=== PATIENT | female | born 1975 | race Caucasian/White ===

== ENCOUNTER 2021-06-04 13:55 | Emergency (ER) | payer MEDICAID ==
[~2021-06-04] VITALS: Ht 154.9 cm; Wt 41.0 kg
[2021-06-04] MEDS ORDERED: BACITRACIN ZINC OINT UDPKT TOP ONE (15:15)
[2021-06-04] MEDS ORDERED: LIDOCAINE HCL/EPINEPHRINE 1%-EPI 1:100,000 20 ML VIAL INFIL ONE (15:15)
[2021-06-04] MEDS ORDERED: LIDOCAINE HCL/EPINEPHRINE 1%-EPI 1:100,000 10 ML VIAL INFIL NR (15:45)
[2021-06-04 16:57] VITALS: BP 127/87
== END 2021-06-04 16:58 | disposition home or self-care (01) ==
LOC: ER 13:55
DX: S01.01XA Laceration without foreign body of scalp, initial encounter (principal); W01.0XXA Fall on same level from slipping, tripping and stumbling without subsequent striking against object, initial encounter; G80.9 Cerebral palsy, unspecified; Y93.89 Activity, other specified; Y92.098 Other place in other non-institutional residence as the place of occurrence of the external cause
CPT/HCPCS: 12013; 99282; A4217; J3490; Z7610

== ENCOUNTER 2021-06-11 13:39 | Emergency (ER) | payer MEDICARE, MEDICAID ==
[~2021-06-11] VITALS: Ht 147.3 cm; Wt 44.0 kg
[2021-06-11 14:39] VITALS: BP 127/75
== END 2021-06-11 14:40 | disposition home or self-care (01) ==
LOC: ER 13:39
DX: Z48.02 Encounter for removal of sutures (principal)
CPT/HCPCS: 99281; 99282

== ENCOUNTER 2022-02-01 18:27 | Emergency (ER) | payer MEDICARE, MEDICAID ==
[~2022-02-01] VITALS: Ht 152.4 cm; Wt 55.0 kg
[2022-02-01] MEDS ORDERED: CLOT15CR27 TP (18:44)
[2022-02-01] MEDS ORDERED: CHLO25TA22 PO (18:44)
[2022-02-01] MEDS ORDERED: FERR325T30 PO (18:44)
[2022-02-01] MEDS ORDERED: DOCU-150 PO (18:44)
[2022-02-01] MEDS ORDERED: CLOT30SO2 TP (18:44)
[2022-02-01] MEDS ORDERED: BACITRACIN ZINC OINT UDPKT TOP ONE (22:15)
[2022-02-01 22:30] VITALS: BP 115/75
== END 2022-02-01 22:37 | disposition home or self-care (01) ==
LOC: ER 18:27
DX: S01.81XA Laceration without foreign body of other part of head, initial encounter (principal); G80.9 Cerebral palsy, unspecified; F79 Unspecified intellectual disabilities; W01.10XA Fall on same level from slipping, tripping and stumbling with subsequent striking against unspecified object, initial encounter; Y93.89 Activity, other specified; Y92.048 Other place in boarding-house as the place of occurrence of the external cause
CPT/HCPCS: 12001; 99282